=== PATIENT | female | born 2000 | race African-American/Black ===

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

== ENCOUNTER 2022-02-02 21:39 | Emergency (ER) | payer MEDICAID ==
[~2022-02-02] VITALS: Ht 154.9 cm; Wt 37.0 kg
[2022-02-02] MEDS ORDERED: IV NORMAL SALINE 1000ML BAG 1,000 ML IV ONE (22:45)
--- NOTE | 2022-02-02 22:51 | ED.ADGEN ---
Past Medical History Past Medical History: Asthma, Diabetes-Type I, Other Additional Past Medical Histor: CHRONIC PAIN,NEUROPATHY,HYPOKALEMIA,SE PSIS,DKA;. ADHD Past Surgical History: Other Additional Past Surgical Histo: Gtube, trach surgery Smoking Status: Never Smoker Alcohol Use: None Drug Use: None General Adult EDM: Chief Complaint: HYPERGLYCEMIA HPI: HPI: Patient is a 21 year old 21-year-old female type I diabetic coming in for hyperglycemia. Patient states that her glucose reading "high". Patient states she took her short acting insulin with breakfast and again with lunch. Went to optometry appointment and when she was checking her sugars are going up despite taking 5 more units and not eating anything else. Patient is also complaining of constipation and slight abdominal distention. Review of Systems: Review of Systems: All other systems within normal limits except for as noted in the HPI Current Medications: Current Medications Medications (Trade) Dose Ordered Sig/Ferny Start Time Stop Time Status Last Admin Dose Admin Ceftriaxone Sodium (Rocephin) 1 gm 1X ONCE 02/03/22 00:15 02/03/22 00:16 DC 02/03/22 00:43 1 GM Insulin Human Regular (HumuLIN R VIAL) 5 unit 1X ONCE 02/03/22 00:15 02/03/22 00:16 DC 02/03/22 00:42 5 UNIT Ketorolac Tromethamine (Toradol 15mg Vial) 15 mg 1X ONCE 02/02/22 23:00 02/02/22 23:01 DC 02/02/22 22:59 15 MG Phenazopyridine HCl (Pyridium) 200 mg 1X ONCE 02/03/22 00:45 02/03/22 00:46 DC 02/03/22 00:48 200 MG Ringer's Solution 500 ml @ 500 mls/hr 1X ONCE 02/03/22 00:15 02/03/22 01:14 DC 02/03/22 00:15 500 MLS/HR Sodium Chloride 1,000 ml @ 1,000 mls/hr 1X ONCE 02/02/22 22:45 02/02/22 23:44 DC 02/02/22 22:58 1,000 MLS/HR Allergies: Allergies: Allergies Coded Allergies Type Severity Reaction Last Updated Verified No Known Drug Allergies 12/23/21 No Physical Exam: PE: Constitutional: Well developed, well nourished, no acute distress, non-toxic appearance. [] HENT: Normocephalic, atraumatic, bilateral external ears normal, nose normal. [] Eyes: PERRLA, conjunctiva normal, no discharge. [] Neck: No rigidity, supple, no stridor. [] Cardiovascular: Tachycardic, regular rhythm, brisk cap refill [] Lungs & Thorax: Non labored symmetric respirations, no tachypnea or respiratory distress [] Abdomen: Soft, nondistended, G-tube in place, no point tenderness to palpation. Skin: Warm, dry, no erythema, no rash. [] Back: Unremarkable Extremities: No deformities, range of motion grossly intact, no lower extremity edema [] Neurologic: Alert and oriented X 3, no focal deficits noted. [] Psychologic: Affect normal, judgement normal, mood normal. [] Current Patient Data: Labs: Laboratory Tests Test 02/02/22 22:05 02/02/22 22:28 02/02/22 22:32 02/02/22 22:45 Urine Collection Type Unknown Urine Color (Auto) Colorless Urine Turbidity Clear Urine pH (Auto) 5.5 (<5.0-8.0) Urine Specific [place] 1.025 (1.000-1.030) Urine Protein (Auto) 30 mg/dL (Negative) Urine Glucose (Auto)(UA) >=1000 mg/dL (Negative) Urine Ketones (Auto) 20 mg/dL (Negative) Urine Blood (Auto) Negative (Negative) Urine Nitrite Negative (Negative) Urine Bilirubin (Auto) Negative (Negative) Urine Urobilinogen (Auto) Normal mg/dL (Normal) Urine Leukocyte Esterase (Auto) Small (Negative) Urine RBC Rare /HPF (0-2) Urine WBC 5-10 /HPF (0-4) Urine Squamous Epithelial Cells Mod /LPF Urine Bacteria Few /HPF (0-FEW) Urine Mucus Slight /LPF Urine Yeast Present /HPF POC Urine HCG, Qualitative Hcg negative (Negative) Glucose (Fingerstick) 519 mg/dL (70-99) *H White Blood Count 9.5 x10^3/uL (4.0-11.0) Red Blood Count 4.28 x10^6/uL (3.50-5.40) Hemoglobin 12.8 g/dL (12.0-15.5) Hematocrit 39.0 % (36.0-47.0) Mean Corpuscular Volume 91 fL (79-100) Mean Corpuscular Hemoglobin 30 pg (25-35) Mean Corpuscular Hemoglobin Concent 33 g/dL (31-37) Red Cell Distribution Width 18.6 % (11.5-14.5) H Platelet Count 381 x10^3/uL (140-400) Neutrophils (%) (Auto) 72 % (31-73) Lymphocytes (%) (Auto) 22 % (24-48) L Monocytes (%) (Auto) 5 % (0-9) Eosinophils (%) (Auto) 1 % (0-3) Basophils (%) (Auto) 1 % (0-3) Neutrophils # (Auto) 6.8 x10^3/uL (1.8-7.7) Lymphocytes # (Auto) 2.0 x10^3/uL (1.0-4.8) Monocytes # (Auto) 0.5 x10^3/uL (0.0-1.1) Eosinophils # (Auto) 0.1 x10^3/uL (0.0-0.7) Basophils # (Auto) 0.1 x10^3/uL (0.0-0.2) Test 02/02/22 23:30 02/03/22 01:26 Sodium Level 131 mmol/L (136-145) L Potassium Level 4.3 mmol/L (3.5-5.1) Chloride Level 96 mmol/L (98-107) L Carbon Dioxide Level 25 mmol/L (21-32) Anion Gap 10 (6-14) Blood Urea Nitrogen 14 mg/dL (7-20) Creatinine 0.7 mg/dL (0.6-1.0) Estimated GFR (Cockcroft-Gault) 130.4 BUN/Creatinine Ratio 20 (6-20) Glucose Level 461 mg/dL (70-99) H Lactic Acid Level 2.0 mmol/L (0.4-2.0) Calcium Level 8.9 mg/dL (8.5-10.1) Phosphorus Level 4.1 mg/dL (2.6-4.7) Magnesium Level 1.9 mg/dL (1.8-2.4) Total Bilirubin 0.5 mg/dL (0.2-1.0) Aspartate Amino Transferase (AST) 24 U/L (15-37) Alanine Aminotransferase (ALT) 54 U/L (14-59) Alkaline Phosphatase 141 U/L (46-116) H Total Protein 7.5 g/dL (6.4-8.2) Albumin 2.6 g/dL (3.4-5.0) L Albumin/Globulin Ratio 0.5 (1.0-1.7) L Lipase 244 U/L (73-393) Glucose (Fingerstick) 344 mg/dL (70-99) H Laboratory Tests 02/02/22 22:45 Laboratory Tests 02/02/22 23:30 Vital Signs: Vital Signs Date Time Temp Pulse Resp B/P (MAP) Pulse Ox O2 Delivery O2 Flow Rate FiO2 02/02/22 21:50 98.2 122 20 144/100 (115) 95 Room Air 98.2 EKG: EKG: [] Heart Score: C/O Chest Pain: No Risk Factors: Risk Factors: DM, Current or recent (<one month) smoker, HTN, HLP, family history of CAD, obesity. Risk Scores: Score 0 - 3: 2.5% MACE over next 6 weeks - Discharge Home Score 4 - 6: 20.3% MACE over next 6 weeks - Admit for Clinical Observation Score 7 - 10: 72.7% MACE over next 6 weeks - Early Invasive Strategies Radiology/Procedures: Radiology/Procedures: [facility] [address] [place] [address] IMAGING REPORT Signed PATIENT: VIRGINIA MILLER LACCOUNT: [id number] : 2000 LOCATION: ER AGE: 21 SEX: F EXAM STATUS: PRE ER ORD. PHYSICIAN: NICOLAS REEVES MD REASON: constipation PROCEDURE: CT ABDOMEN PELVIS WO CONTRAST PQRS Compliance Statement: One or more of the following individualized dose reduction techniques were utilized for this examination: 1. Automated exposure control 2. Adjustment of the mA and/or kV according to patient size 3. Use of iterative reconstruction technique CT ABDOMEN+PELVIS WO Clinical Indication: Reason: constipation / Spl. Instructions: / History: Comparison: CT abdomen and pelvis without contrast, December 09, 2021. Technique: Helical CT imaging of the abdomen and pelvis is performed without IV or oral contrast. Findings: Evaluation of solid organs and bowel is limited without oral and IV contrast, decreasing sensitivity for detection of abnormal findings. Mild consolidations in the posterior lower lobes bilaterally are similar to prior study and may be atelectasis and/or scarring. Cardiac size is normal. Gallbladder is contracted. The liver, spleen, pancreas, adrenal glands, and abdominal aorta are normal. There is no hydronephrosis or perinephric stranding. No renal calculus. There is gastrostomy tube in appropriate position. There is no small bowel obstruction. There is no colon wall thickening. The visualized appendix is normal caliber. There is moderate urinary bladder wall thickening. Uterus unremarkable. There is mild pelvic free fluid. No acute bone abnormality. IMPRESSION: 1. There is urinary bladder wall thickening suggesting cystitis or chronic bladder outlet obstruction. 2. Mild pelvic free fluid, probably physiologic. Electronically signed by: Ben Burnett MD (02/02/2022 11:39 PM) [facility] DICTATED and SIGNED BY: BEN BURNETT MD DATE: 02/02/222329 [] Course & Med Decision Making: Course & Med Decision Making Pertinent Labs and Imaging studies reviewed. (See chart for details) Patient has large stool burden and cystitis on CT. Patient requesting stronger pain meds patient is not in any acute distress and his presentation or when checking on her. Discussed that we will avoid opioid medications as it can worsen her constipation. Patient's blood glucose reduced but advised to still take her long-acting insulin she gets home. Patient has a history of poorly controlled diabetes, is not currently in DKA [] Aniya Disclaimer: Aniya Disclaimer: This electronic medical record was generated, in whole or in part, using a voice recognition dictation system. Departure Departure Impression: Primary Impression: Hyperglycemia Additional Impressions: UTI (urinary tract infection) Constipation Disposition: 01 HOME / SELF CARE / HOMELESS Condition: STABLE Referrals: NO PCP (PCP) Patient Instructions: Constipation, Adult Scripts Polyethylene Glycol 3350 (MIRALAX) 119 Gm Powder 17 GM PO DAILY for constipation, #255 GM 0 Refills dissolve in water Prov: NICOLAS REEVES MD 02/03/22 Phenazopyridine Hcl (PYRIDIUM) 200 Mg Tablet 1 TAB PO TID for urinary discomfort for 3 Days, #9 TAB 0 Refills Prov: NICOLAS REEVES MD 02/03/22 Cephalexin (CEPHALEXIN) 500 Mg Tablet 1 TAB PO BID for antibiotic for 7 Days, #14 TAB Prov: NICOLAS REEVES MD 02/03/22 Problem Qualifiers NICOLAS REEVES MD February 02, 2022 22:51
[2022-02-02] MEDS ORDERED: KETOROLAC 15 MG/ML VIAL. ONE (22:52)
[2022-02-02 22:54] LABS: BASO # 0.1 x10^3/uL (0.0-0.2); BASO % 1 % (0-3); EOS # 0.1 x10^3/uL (0.0-0.7); EOS % 1 % (0-3); HEMOGLOBIN 12.8 g/dL (12.0-15.5); LYMPH % 22 % (24-48); MEAN CORPUSCULAR HEMOGLOBIN 30 pg (25-35); MEAN CORPUSCULAR HGB CONC 33 g/dL (31-37); MEAN CORPUSCULAR VOLUME 91 fL (79-100); MONO # 0.5 x10^3/uL (0.0-1.1); MONO % 5 % (0-9); NEUT # 6.8 x10^3/uL (1.8-7.7); NEUT % 72 % (31-73); PLATELET COUNT 381 x10^3/uL (140-400); RED BLOOD COUNT 4.28 x10^6/uL (3.50-5.40); RED CELL DISTRIBUTION WIDTH 18.6 % (11.5-14.5); WHITE BLOOD COUNT 9.5 x10^3/uL (4.0-11.0)
[2022-02-02] MEDS ORDERED: KETOROLAC 15 MG/ML VIAL. IVP ONE (23:00)
[2022-02-02 23:08] LABS: BACTERIA,URINE FEW /HPF (0-FEW); RBC,URINE RARE /HPF (0-2)
[2022-02-02 23:09] LABS: YEAST,URINE PRESENT /HPF
--- NOTE | 2022-02-02 23:42 | RAD ---
PQRS Compliance Statement: One or more of the following individualized dose reduction techniques were utilized for this examinat ion: 1. Automated exposure control 2. Adjustment of the mA and/or kV according to patient size 3. Use of iterative reconstruction technique CT ABDOMEN+PELVIS WO Clinical Indication: Reason: constipation / Spl. Instructions: / History: Comparison: CT abdomen and pelvis without contrast, December 09, 2021. Technique: Helical CT imaging of the abdomen and pelvis is performed without IV or oral contrast. Findings: Evaluation of solid organs and bowel is limited without oral and IV contrast, decreasing sensitivity for detection of abnormal findings. Mild consolidations in the posterior lower lobes bilaterally are similar to prior study and may be at electasis and/or scarring. Cardiac size is normal. Gallbladder is contracted. The liver, spleen, pancreas, adrenal glands, and abdominal aorta are reji l. There is no hydronephrosis or perinephric stranding. No renal calculus. There is gastrostomy tube in appropriate position. There is no small bowel obstruction. There is no c olon wall thickening. The visualized appendix is normal caliber. There is moderate urinary bladder wall thickening. Uterus unremarkable. There is mild pelvic free flu id. No acute bone abnormality. IMPRESSION: 1. There is urinary bladder wall thickening suggesting cystitis or chronic bladder outlet obstructio n. 2. Mild pelvic free fluid, probably physiologic. Electronically signed by: Ben Burnett MD (02/02/2022 11:39 PM) [facility]
[2022-02-02 23:46] LABS: CALCIUM 8.9 mg/dL (8.5-10.1); CREATININE 0.7 mg/dL (0.6-1.0); GFR 130.4; POTASSIUM 4.3 mmol/L (3.5-5.1)
[2022-02-02 23:52] LABS: ALBUMIN 2.6 g/dL (3.4-5.0); ALBUMIN/GLOBULIN RATIO 0.5 (1.0-1.7); MAGNESIUM 1.9 mg/dL (1.8-2.4); PHOSPHORUS 4.1 mg/dL (2.6-4.7); TOTAL BILIRUBIN 0.5 mg/dL (0.2-1.0); TOTAL PROTEIN 7.5 g/dL (6.4-8.2)
[2022-02-03] MEDS ORDERED: IV RINGERS,LACTATED 500ML 500 ML IV ONE (00:15)
[2022-02-03] MEDS ORDERED: cefTRIAXone IV Push 1 GM VIAL. IVP ONE (00:15)
[2022-02-03] MEDS ORDERED: INSULIN REGULAR 100 UNIT/ML 3ML VIAL. IV ONE (00:15)
[2022-02-03] MEDS ORDERED: PHENAZOPYRIDINE 200 MG TABLET. PO ONE (00:45)
[2022-02-03 01:12] VITALS: BP 152/100
[2022-02-03] MEDS ORDERED: PHEN-318 PO (01:42)
[2022-02-03] MEDS ORDERED: CEPH500T PO (01:42)
[2022-02-03] MEDS ORDERED: POLY119P4 PO (01:42)
--- NOTE | 2022-02-04 06:11 | EKG ---
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
== END 2022-02-03 02:05 | disposition home or self-care (01) ==
LOC: ER 21:39
DX: E10.65 Type 1 diabetes mellitus with hyperglycemia (principal); N39.0 Urinary tract infection, site not specified; K59.00 Constipation, unspecified; J45.909 Unspecified asthma, uncomplicated; E10.40 Type 1 diabetes mellitus with diabetic neuropathy, unspecified; G89.29 Other chronic pain
CPT/HCPCS: 36415; 74176; 80053; 81001; 81025; 82962; 83605; 83690; 83735; 84100; 85025; 87086; 93005; 96361; 96374; 96375; 99285; J0696; J1815; J1885; J7030; J7120